=== PATIENT | male | born 1975 | race Two or more races ===

== ENCOUNTER 2018-10-27 08:28 | Emergency (ER) | payer SELFPAY ==
[~2018-10-27] VITALS: Ht 175.3 cm; Wt 95.3 kg
[2018-10-27] MEDS ORDERED: KETOROLAC TROMETH 60MG/2ML VIAL IM ONE (09:15)
[2018-10-27] MEDS ORDERED: SILVER SULFADIAZINE 1 % TOPICAL CREAM 50GM TOP ONE (09:15)
[2018-10-27] MEDS ORDERED: METHOCARBAMOL 500 MG TAB PO ONE (09:15)
[2018-10-27 10:33] VITALS: BP 141/105
== END 2018-10-27 10:49 | disposition home or self-care (01) ==
LOC: EDBD 08:28 → ER 08:28
DX: M54.2 Cervicalgia (principal); V43.52XA Car driver injured in collision with other type car in traffic accident, initial encounter; Y93.89 Activity, other specified; Y99.8 Other external cause status; Y92.410 Unspecified street and highway as the place of occurrence of the external cause
CPT/HCPCS: 72125; 99284; J1885